=== PATIENT | male | born 1990 | race African-American/Black ===

== ENCOUNTER 2017-03-31 17:38 | Emergency (ER) | payer BC, MEDICAID ==
[~2017-03-31] VITALS: Ht 185.4 cm; Wt 96.0 kg
[2017-03-31 21:40] LABS: CLARITY URINE CLEAR (CLEAR); COLOR URINE YELLOW (YELLOW); GLUCOSE URINE NEGATIVE (NEGATIVE); KETONES URINE NEGATIVE (NEGATIVE); LEUKOCYTE ESTERASE URINE NEGATIVE (NEGATIVE); NITRITE URINE NEGATIVE (NEGATIVE); OCCULT BLOOD URINE NEGATIVE (NEGATIVE); PROTEIN URINE TRACE (NEGATIVE); SPECIFIC GRAVITY URINE 1.025 (1.005-1.030)
[2017-04-01] MEDS ORDERED: CEFTRIAXONE SODIUM 250 MG/VIAL IM ONE
[2017-04-01] MEDS ORDERED: LIDOCAINE HCL 1% 20ML VIAL (Pyxis) INJ MC ONE
[2017-04-01] MEDS ORDERED: AZITHROMYCIN 500 MG TABLET PO ONE
[2017-04-01 00:56] VITALS: BP 132/77
== END 2017-04-01 00:56 | disposition home or self-care (01) ==
LOC: ER 19:45
DX: R30.0 Dysuria (principal); F12.10 Cannabis abuse, uncomplicated
CPT/HCPCS: 81001; 96372; 99283; J0696; J3490

== ENCOUNTER 2021-08-01 05:59 | Emergency (ER) | payer BC, MEDICAID ==
[~2021-08-01] VITALS: Ht 188 cm; Wt 82.0 kg
[2021-08-01] MEDS ORDERED: ONDANSETRON HCL 4MG/2ML INJ IV STA (07:13)
[2021-08-01] MEDS ORDERED: SODIUM CHLORIDE 0.9% 1,000 ML IV ONE ×2 (07:15→09:00)
[2021-08-01 07:50] LABS: HEMATOCRIT. 46.9 % (42.0-52.0); HEMOGLOBIN. 16.2 g/dL (14.0-18.0); MEAN PLATELET VOLUME 10.1 fl (7.4-10.4); PLATELET 140 x1000/uL (130-400); RED BLOOD CELL COUNT 5.39 mill/uL (4.7-6.1); RED CELL DISTRIBUTION WIDTH 14.3 % (11.6-14.6)
[2021-08-01 07:59] LABS: CHLORIDE 99 mEq/L (98-107)
[2021-08-01 08:36] LABS: CLARITY URINE CLOUDY (CLEAR); COLOR URINE DARK YELLOW (YELLOW); KETONES URINE 1+ (NEGATIVE); LEUKOCYTE ESTERASE URINE NEGATIVE (NEGATIVE); NITRITE URINE NEGATIVE (NEGATIVE); OCCULT BLOOD URINE 2+ (NEGATIVE); PH URINE 5.5 (4.5-8.0); PROTEIN URINE 3+ (NEGATIVE); SPECIFIC GRAVITY URINE 1.037 (1.005-1.030)
[2021-08-01 08:44] LABS: PLATELET ESTIMATE NORMAL
[2021-08-01 10:50] VITALS: BP 128/76
== END 2021-08-01 11:00 | disposition home or self-care (01) ==
LOC: ER 06:16
DX: R10.33 Periumbilical pain (principal); E86.0 Dehydration; F12.10 Cannabis abuse, uncomplicated
CPT/HCPCS: 36415; 74176; 80053; 81003; 83690; 85025; 93005; 96360; 96361; 99285; J2405; J7030